=== PATIENT | male | born 1970 | race Caucasian/White ===

== ENCOUNTER 2017-06-17 08:57 | Emergency (ER) | payer OTHER ==
[2017-06-17] MEDS ORDERED: IBUPROFEN 800 MG TABLET PO ONE (09:38)
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
[2017-06-17 09:54] VITALS: BP 124/74
== END 2017-06-17 09:54 | disposition home or self-care (01) ==
LOC: ER 08:57
DX: M99.01 Segmental and somatic dysfunction of cervical region (principal); M54.2 Cervicalgia; M54.42 Lumbago with sciatica, left side; M54.41 Lumbago with sciatica, right side; V43.52XA Car driver injured in collision with other type car in traffic accident, initial encounter
CPT/HCPCS: 99283